=== PATIENT | female | born 1960 | race Caucasian/White ===

== ENCOUNTER 2020-04-13 12:37 | Outpatient (CLI) | payer OTHER, SELFPAY ==
--- NOTE | 2020-04-13 12:59 | MM_ITS ---
WS: [id number] BILATERAL DIGITAL SCREENING MAMMOGRAPHY WITH CAD CLINICAL INFORMATION: SCREENING HISTORY: Screening mammogram. No current complaints. COMPARISON: TECHNIQUE: Bilateral CC and MLO views. FINDINGS: Scattered fibroglandular densities bilaterally. No suspicious focal mass, asymmetry, calcifications, or architectural distortion. No evidence of malignancy. MM/[place] [id number] IMPRESSION: BI-RADS: 1-Negative FOLLOW UP: 1 Year Follow-up Recommend return to annual screening mammography.
== END 2020-04-13 12:38 | disposition home or self-care (01) ==
LOC: RADSHAW 12:38
PROVIDERS: PCP Nurse Practitioner Family; Visit Provider Nurse Practitioner Family
DX: Z12.31 Encounter for screening mammogram for malignant neoplasm of breast (principal)
CPT/HCPCS: 77067

== ENCOUNTER 2020-04-28 07:26 | Day surgery (SDC) | payer OTHER, SELFPAY ==
[2020-04-28 07:42] VITALS: BP 141/75; PULSE 71; RESP 16; TEMP 36.2; O2SAT 97
--- NOTE | 2020-04-28 07:54 | ANES.PREANE2 ---
Pre-Anesthetic Assessment Pre-Anesthetic Assessment: Height/Weight: Height 1.63 m Weight 103.782 kg Temp Pulse Resp BP Pulse Ox 97.2 F L 71 16 141/75 97 04/28/20 07:42 04/28/20 07:42 04/28/20 07:42 04/28/20 07:42 04/28/20 07:42 Preop Diagnosis: screening colonoscopy Proposed Procedure: Operation Date: 04/28/20 08:00 Proposed Procedures p Colonoscopy 47714 z86.010(Not Applicable) - Deon Escobar MD Was Beta Renny taken within 24 hours: N/A Last intake: Intake Last Liquid Date 04/28/20 Last Solid Date 04/26/20 Social: Social History: No alcohol and No tobacco Exam: Pre-Anes Outpt Exam: alert, oriented x 3, clear to auscultation bilaterally and regular rate & rhythm Airway: Submandibular: WNL Cervical ROM: WNL MP: 1 History/ROS: No significant history except as noted Pulmonary: Pulmonary: None reported CV/HEM: CV/HEM: None reported : : None reported Hepatic: Hepatic: None reported GI: GI: GERD Comments: partial colectomy 2009 Metabolic: Metabolic: None reported Musc/skel: Musc/skel: None reported Neuropsych: Neuropsych: None reported Anesthetic Plan: ASA status: 1 Anesthesia: Anesthesia Evaluation Risk of > 500 ml blood loss (7ml/kg in children): No PFSH Anesthesia PFSH: Medical History (Updated 04/13/20 @ 10:16 by Deon Escobar MD) Colon polyps COVID-19 History of colon cancer Surgical History (Updated 04/13/20 @ 10:14 by Deon Escobar MD) History of cholecystectomy 1998 History of colon resection 2010 History of colonoscopy with polypectomy History of hysterectomy Family History Denies family history of Anesthesia complication Bleeding disorder Social History (Updated 04/13/20 @ 10:00 by NATALIE Camacho) Smoking and tobacco status: never smoked Alcohol intake: never Data Anesthesia Cardiac Studies: No Data to Display
[2020-04-28] MEDS: sodium chloride 0.9% 1,000 ML 30 ML IV (07:57)
--- NOTE | 2020-04-28 08:20 | W.PM.OPSUD ---
Surgery/Procedure H&P Update DATE OF PROCEDURE: April 28, 2020 DATE H&P PERFORMED: 04/13/20 H&P UPDATE INFORMATION: I have reviewed H&P completed within last 30 days, I have examined patient prior to procedure and No changes to prior documentation PREOP DIAGNOSIS: screening colonoscopy PLANNED PROCEDURE: Operation Date: 04/28/20 08:00 Proposed Procedures p Colonoscopy 53838 z86.010(Not Applicable) - Deon Escobar MD
[2020-04-28 08:47] VITALS: BP 144/82; PULSE 83; RESP 16; TEMP 36.9; O2SAT 94
[2020-04-28 09:09] VITALS: BP 145/77; PULSE 76; RESP 16; O2SAT 92
--- NOTE | 2020-04-28 12:06 | ANE.PACU2 ---
Inpatient post-anesthesia follow up: Airway intact: Yes Vital signs: Temperature 98.4 F Pulse Rate 76 Respiratory Rate 16 Blood Pressure 145/77 Pulse Oximetry 92 Oxygen Delivery Me thod Room Air Oxygen Flow Rate Fraction of Inspir ed Oxygen Hydration adequate: Yes Nausea and vomiting: No Pain level: 1 Mental status: Baseline
== END 2020-04-28 09:25 | disposition home or self-care (01) ==
PROVIDERS: PCP Nurse Practitioner Family; Visit Provider Surgery
PROC: 0DJD8ZZ Inspection of Lower Intestinal Tract, Via Natural or Artificial Opening Endoscopic (ICD-10-PCS; CPT 45378; principal; 2020-04-28 08:00)
DX: Z12.11 Encounter for screening for malignant neoplasm of colon (principal); Z86.010 Personal history of colon polyps; D12.4 Benign neoplasm of descending colon; D12.5 Benign neoplasm of sigmoid colon; D12.3 Benign neoplasm of transverse colon; K64.8 Other hemorrhoids; Z90.49 Acquired absence of other specified parts of digestive tract; K21.9 Gastro-esophageal reflux disease without esophagitis; Z85.038 Personal history of other malignant neoplasm of large intestine
CPT/HCPCS: 45380; 45385; 88305; J2704; J7030

== ENCOUNTER → 2024-12-04 15:32 | Outpatient (BNVA) | payer OTHER, MEDICARE, SELFPAY | PROVIDERS: PCP Nurse Practitioner Family; Visit Provider Podiatrist Foot & Ankle Surgery | DX: M79.671 Pain in right foot (principal); M76.61 Achilles tendinitis, right leg; M77.31 Calcaneal spur, right foot | CPT/HCPCS: 73630 ==

== ENCOUNTER 2024-12-18 12:21 | Outpatient (RCR) | payer OTHER, MEDICARE, SELFPAY | END 2025-01-03 23:59 | disposition home or self-care (01) | LOC: SPT 12:21 | PROVIDERS: PCP Nurse Practitioner Family; Visit Provider Podiatrist Foot & Ankle Surgery | DX: M76.60 Achilles tendinitis, unspecified leg (principal) | CPT/HCPCS: 97140; 97161 ==